=== PATIENT | female | born 2000 | race Caucasian/White ===

== ENCOUNTER 2020-02-09 11:48 | Emergency (ER) | payer SELFPAY ==
--- NOTE | 2020-02-09 12:19 | ED Physician Documentation ---
PD HPI NVD - Stated complaint Stated Complaint: NAUSEA/LIGHT HEADED - Chief complaint Chief Complaint: Abd Pain - History obtained from History obtained from: Patient - History of Present Illness Timing - onset: Last night Timing - duration: Hours (15) Timing - details: Abrupt onset, Still present Associated symptoms: Abdominal pain (mid abd cramping pains), Hematemesis. No: Fever Contributing factors: Recent antibiotics. No: Sick contact, Bad food, Alcohol use Similar symptoms before: Has not had sx before Review of Systems Constitutional: reports: Myalgias, Fatigue. denies: Fever, Chills Nose: denies: Rhinorrhea / runny nose, Congestion Throat: denies: Sore throat Respiratory: denies: Cough GI: reports: Abdominal Pain (mid abdomen, onset with vomiting and diarrhea), Nausea, Vomiting, Diarrhea. denies: Abdominal Swelling : denies: Dysuria, Frequency, Discharge, Missed period Skin: denies: Rash, Lesions Neurologic: reports: Generalized weakness, Headache. 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 : None HEENT: None Psych: None Musculoskeletal: None Derm: None - Past Surgical History Past Surgical History: No - Present Medications Home Medications: Ambulatory Orders Medication Instructions Recorded Confirmed Diphenoxylate/Atropine [Lomotil] 1 each PO QID PRN #12 tablet 02/09/20 Ondansetron Odt [Zofran] 4 mg TL Q6H PRN #10 tablet 02/09/20 - Allergies Allergies/Adverse Reactions: Allergies Allergy/AdvReac Type Severity Reaction Status Date / Time No Known Drug Allergies Allergy Verified 02/09/20 11:53 - Social History Does the pt smoke?: No Smoking Status: Former smoker Does the pt drink ETOH?: No Does the pt have substance abuse?: Yes Substance Use and Type: Marijuana - Immunizations Immunizations are current?: Yes - POLST Patient has POLST: No PD ED PE NORMAL - Vitals Vital signs reviewed: Yes - General General: Alert and oriented X 3, No acute distress, Well developed/nourished - HEENT HEENT: Pharynx benign. No: Moist mucous membranes - Neck Neck: Supple, no meningeal sign, No adenopathy - Cardiac Cardiac: RRR, No murmur - Respiratory Respiratory: Clear bilaterally - Abdomen Abdomen: Normal bowel sounds, Soft, Non distended, No organomegaly, Other (mid abd tender without guarding nor percussion tender. Mild tender RLQ and LLQ as well but no guarding nor rebound. ) Results - Vitals Vitals: Vital Signs - 24 hr 02/09/20 02/09/20 02/09/20 11:53 12:25 12:57 Temperature 36.5 C 36.5 C Heart Rate 74 66 94 Respiratory 18 18 16 Rate Blood Pressure 116/62 116/79 124/86 H O2 Saturation 99 100 100 02/09/20 14:25 Temperature 36.8 C Heart Rate 77 Respiratory 12 Rate Blood Pressure 131/81 H O2 Saturation 100 Oxygen O2 Source Room air - Labs Labs: Laboratory Tests 02/09/20 02/09/20 02/09/20 12:08 12:08 12:20 WBC 11.0 H RBC 4.59 Hgb 12.2 Hct 39.0 MCV 85.0 MCH 26.6 L MCHC 31.3 L RDW 15.0 Plt Count 189 MPV 12.4 H Neut # (Auto) Not Reportable Lymph # (Auto) Not Reportable [place] # (Auto) Not Reportable Eos # (Auto) Not Reportable Baso # (Auto) Not Reportable Absolute Nucleated RBC Not Reportable Total Counted 100 Band Neuts % (Manual) 0 Abnorm Lymph % (Manual) 0 Nucleated RBC % Not Reportable Neutrophils # (Manual) 8.8 H Lymphocytes # (Manual) 1.9 Monocytes # (Manual) 0.3 Eosinophils # (Manual) 0.0 Basophils # (Manual) 0.0 Differential Comment MANUAL DIFFERENTIAL Platelet Estimate NORMAL (130-450,000) Platelet Morphology NORMAL APPEARANCE RBC Morph Micro Appear NORMAL APPEARANCE Sodium 137 Potassium 3.6 Chloride 105 Carbon Dioxide 23 Anion Gap 9.0 BUN 7 Creatinine 0.6 Estimated GFR (MDRD) 126 Glucose 107 H Calcium 9.5 Total Bilirubin 0.8 AST 20 ALT 12 Alkaline Phosphatase 54 Total Protein 8.7 H Albumin 5.1 Globulin 3.6 Albumin/Globulin Ratio 1.4 Lipase 32 Urine Color YELLOW Urine Clarity CLEAR Urine pH 5.5 Ur Specific [place] 1.020 Urine Protein TRACE Urine Glucose (UA) NEGATIVE Urine Ketones >=80 H Urine Occult Blood SMALL H Urine Nitrite NEGATIVE Urine Bilirubin NEGATIVE Urine Urobilinogen 0.2 (NORMAL) Ur Leukocyte Esterase NEGATIVE Urine RBC None Seen Urine WBC 0-3 Ur Squamous Epith Cells NONE SEEN Urine Bacteria None Seen Ur Microscopic Review INDICATED Urine Culture Comments NOT INDICATED Urine HCG, Qual NEGATIVE PD MEDICAL DECISION MAKING - ED course Complexity details: re-evaluated patient (no focal tenderness and no peritoneal signs on exam. Nausea improved and she says she feels hungry and stomach is "growling". ), considered differential (seems abrupt onset with V/D and no focal tenderness on abd. Presume viral GE vs food related. ), d/w patient Departure - Departure Disposition: 01 Home, Self Care Clinical Impression: Nausea vomiting and diarrhea Condition: Stable Record reviewed to determine appropriate education?: Yes Instructions: ED Food Poison Or Gastroenteritis Prescriptions: Diphenoxylate/Atropine [Lomotil] 1 each PO QID PRN #12 tablet PRN Reason: Diarrhea Ondansetron Odt [Zofran] 4 mg TL Q6H PRN #10 tablet PRN Reason: Nausea / Vomiting Comments: Small frequent fluids. Start initially with bland foods such as breads rice pastas and crackers. Progress as tolerated. Tylenol or ibuprofen if needed for mild pains. Ondansetron if needed for nausea and Lomotil for diarrhea. I would anticipate improvement over the next 1 to 2 days at most and resolution of symptoms within a few days. Recheck if not improving in that time course and return sooner if worse. Discharge Date/Time: 02/09/20 14:37
[2020-02-09 12:20] LABS: BASOPHILS % (AUTO) 0.4 %; EOSINOPHILS % (AUTO) 0.1 %; HGB - HEMOGLOBIN 12.2 g/dL (12.0-16.0); MEAN CORPUSCULAR HEMOGLOBIN 26.6 pg (27.0-31.0); MEAN CORPUSCULAR HGB CONC 31.3 g/dL (32.0-36.0); MEAN PLATELET VOLUME 12.4 fL (7.9-10.8); MONOCYTES % (AUTO) 2.9 %; NEUTROPHILS % (AUTO) 88.3 %; PLT - PLATELET COUNT 189 10^3/uL (130-450); RED BLOOD COUNT 4.59 10^6/uL (4.20-5.40)
[2020-02-09 12:25] LABS: ABNORMAL LYMPHS % (MANUAL) 0 %; BAND NEUTROPHILS % (MANUAL) 0 %
[2020-02-09 12:29] LABS: ALBUMIN 5.1 g/dL (3.2-5.5); ALBUMIN/GLOBULIN RATIO 1.4 (1.0-2.2); BILIRUBIN,TOTAL 0.8 mg/dL (0.2-1.0); CALCIUM 9.5 mg/dL (8.5-10.3); CREATININE 0.6 mg/dL (0.4-1.0); TOTAL PROTEIN 8.7 g/dL (6.7-8.2)
[2020-02-09 12:31] LABS: BILIRUBIN,URINE NEGATIVE (NEGATIVE); GLUCOSE, URINE (UA) NEGATIVE (NEGATIVE); KETONES,URINE (UA) >=80 mg/dL (NEGATIVE); LEUKOCYTE ESTERASE, URINE NEGATIVE (NEGATIVE); NITRITE,URINE NEGATIVE (NEGATIVE); OCCULT BLOOD,URINE SMALL (NEGATIVE); PH,URINE 5.5 PH (5.0-7.5); PROTEIN,URINE TRACE mg/dL (NEGATIVE); UROBILINOGEN,URINE 0.2 (NORMAL) E.U./dL (NORMAL)
[2020-02-09 12:33] LABS: CLARITY,URINE CLEAR (CLEAR); HCG UR QUAL NEGATIVE
[2020-02-09 12:41] LABS: BACTERIA,URINE None Seen /HPF (None Seen); RBC,URINE None Seen /HPF (0-5); SQUAMOUS EPITHELIAL CELL,UR NONE SEEN (<= Few)
[2020-02-09] MEDS ORDERED: DIPHENOX/ATROPINE 2.5/0.025 MG TABLET PO STA (12:41)
[2020-02-09] MEDS ORDERED: LACTATED RINGERS 1,000 ML IV STA (12:41)
[2020-02-09] MEDS ORDERED: ONDANSETRON 4 MG/2 ML VIAL IVP STA (12:41)
[2020-02-09] MEDS ORDERED: MORPHINE 2 MG/ML CARPUJECT IVP STA (12:41)
[2020-02-09 12:49] LABS: DIFFERENTIAL COMMENT MANUAL DIFFERENTIAL; LYMPHOCYTES # (MANUAL) 1.9 10^3/uL (1.5-3.5); LYMPHOCYTES % (MANUAL) 17 %; MONOCYTES # (MANUAL) 0.3 10^3/uL (0.0-1.0); PLATELET ESTIMATE, MANUAL NORMAL (130-450,000) (NORMAL); PLATELET MORPHOLOGY NORMAL APPEARANCE (NORMAL); RBC MORPHOLOGY (MULTIPLE) NORMAL APPEARANCE (NORMAL)
[2020-02-09] MEDS ORDERED: KETOROLAC 15 MG/ML VIAL IVP STA (13:52)
[2020-02-09 14:26] VITALS: BP 131/81
== END 2020-02-09 14:37 | disposition home or self-care (01) ==
LOC: ED 11:48
DX: R11.2 Nausea with vomiting, unspecified (principal); R19.7 Diarrhea, unspecified; Z87.891 Personal history of nicotine dependence
CPT/HCPCS: 36415; 80053; 81001; 81025; 83690; 85025; 96361; 96374; 96375; 99283; 99284; A9270; J7120; 81003; 87086

== ENCOUNTER 2020-03-05 07:33 | Emergency (ER) | payer MEDICAID ==
[2020-03-05] MEDS ORDERED: HALOPERIDOL 5 MG/ML VIAL IM STA (07:59)
--- NOTE | 2020-03-05 08:02 | ED Physician Documentation ---
PD HPI NVD - Stated complaint Stated Complaint: VOMITING - History obtained from History obtained from: Patient - History of Present Illness Timing - onset: Enter time (0300), Last night Timing - duration: Hours Timing - details: Abrupt onset, Still present Associated symptoms: Abdominal pain Contributing factors: Other (canabis use). No: Sick contact, Bad food, Travel, Recent antibiotics, Alcohol use, Anticoagulated, Diabetes Improved by: Laying still, Vomiting Similar symptoms before: Diagnosis (gastroenteritis) Recently seen: Emergency Dept - Additonal information Additional information: 19-year-old female has developed abdominal pain nausea and vomiting through the night tonight and she reports having relief of symptoms with hot shower. She has found this over the past several weeks to be true. She states that she did try to stop smoking cannabis and when this did not seem to help much she started up again to make her feel better. She has been into the emergency department 4 weeks ago with similar symptoms.She found the Zofran helpful. 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 : None HEENT: None Psych: None Musculoskeletal: None Derm: None - Past Surgical History Past Surgical History: No - Present Medications Home Medications: Ambulatory Orders Medication Instructions Recorded Confirmed Ondansetron Odt [Zofran] 4 mg TL Q6H PRN #10 tablet 03/05/20 - Allergies Allergies/Adverse Reactions: Allergies Allergy/AdvReac Type Severity Reaction Status Date / Time No Known Drug Allergies Allergy Verified 03/05/20 08:02 - Social History Does the pt smoke?: No Smoking Status: Former smoker Does the pt drink ETOH?: No Does the pt have substance abuse?: Yes - Immunizations Immunizations are current?: Yes - POLST Patient has POLST: No PD ED PE NORMAL - Vitals Vital signs reviewed: Yes - General General: Alert and oriented X 3, No acute distress, Well developed/nourished - HEENT HEENT: Atraumatic, PERRL, EOMI - Neck Neck: Supple, no meningeal sign, No bony TTP - Cardiac Cardiac: RRR, No murmur - Respiratory Respiratory: No respiratory distress, Clear bilaterally - Abdomen Abdomen: Normal bowel sounds, Soft, Non distended, No organomegaly, Other (mild tenderness generalized no garding ) - Back Back: No CVA TTP, No spinal TTP - Derm Derm: Normal color, Warm and dry, No rash - Extremities Extremities: No deformity, No edema - Neuro Neuro: Alert and oriented X 3, service girl 2-12 intact, No motor deficit, No sensory deficit, Normal speech Eye Opening: Spontaneous Motor: Obeys Commands Verbal: Oriented GCS Score: 15 - Psych Psych: Normal mood, Normal affect Results - Vitals Vitals: Vital Signs - 24 hr 03/05/20 07:50 Temperature 36.7 C Heart Rate 87 Respiratory 18 Rate Blood Pressure 124/72 O2 Saturation 99 Oxygen O2 Source Room air Procedures - IVC sono (time) 0755 Bedside IVC sono: IVC measures (cm) (1.83), Euvolemia PD MEDICAL DECISION MAKING - ED course Complexity details: reviewed old records, considered differential, d/w patient, d/w family ED course: 19-year-old female with suspicion of cannabis hyperemesis is again having symptoms. Today she is found to be euvolemic on interrogation the inferior vena cava and intravenous fluids are not indicated. She is administered Haldol 2.5 mg IM. This helps a lot. She acknowledges the possibility of cannabis hyperemesis. We will prescribe zofran as this has helped previously. She had a negative test on February 08 and she had her last menstrual period 2 weeks ago. She is using an IUD for control. She feels it highly unlikely that she is . Departure - Departure Disposition: 01 Home, Self Care Clinical Impression: Vomiting Qualifiers: Vomiting type: unspecified Vomiting Intractability: non-intractable Nausea presence: with nausea Qualified Code(s): R11.2 - Nausea with vomiting, unspecified Instructions: ED Diet Vomiting Diarrhea Follow-Up: [facility] [Provider Group] Prescriptions: Ondansetron Odt [Zofran] 4 mg TL Q6H PRN #10 tablet PRN Reason: Nausea / Vomiting
[2020-03-05 08:47] VITALS: BP 112/61
== END 2020-03-05 08:46 | disposition home or self-care (01) ==
LOC: ED 07:33
DX: R11.2 Nausea with vomiting, unspecified (principal); Z87.891 Personal history of nicotine dependence
CPT/HCPCS: 99283; 99284

== ENCOUNTER 2020-03-06 11:38 | Emergency (ER) | payer MEDICAID ==
[2020-03-06] MEDS ORDERED: SODIUM CHLORIDE 0.9% 1,000 ML IV STA (12:26)
--- NOTE | 2020-03-06 12:34 | ED Physician Documentation ---
History of Present Illness - Stated complaint Stated Complaint: MUSCLE TWITCHING - Chief complaint Chief Complaint: General - History obtained from History obtained from: Patient, Family - History of Present Illness Timing: Today Pain level max: 0 Pain level now: 0 - Additonal information Additional information: muscle spasms to the B face and neck today. States vision is blurry. Patient was seen here yesterday for presumed cannabinoid induced hyperemesis. She received Haldol with relief. She states she has had blurred vision since that time. She denies any possibility of . No recent travel. No fever. No vomiting or diarrhea today. The twitching has now resolved. 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 : None HEENT: None Psych: None Musculoskeletal: None Derm: None - Past Surgical History Past Surgical History: No - Present Medications Home Medications: Ambulatory Orders Medication Instructions Recorded Confirmed Ondansetron Odt [Zofran] 4 mg TL Q6H PRN #10 tablet 03/05/20 - Allergies Allergies/Adverse Reactions: Allergies Allergy/AdvReac Type Severity Reaction Status Date / Time No Known Drug Allergies Allergy Verified 03/06/20 11:49 - Social History Does the pt smoke?: No Smoking Status: Never smoker Does the pt drink ETOH?: No Does the pt have substance abuse?: Yes - Immunizations Immunizations are current?: Yes - POLST Patient has POLST: No PD ED PE NORMAL - Vitals Vital signs reviewed: Yes - General General: Alert and oriented X 3, No acute distress - HEENT HEENT: PERRL, EOMI, Ears normal, Moist mucous membranes, Pharynx benign - Neck Neck: Supple, no meningeal sign - Cardiac Cardiac: RRR, Strong equal pulses - Respiratory Respiratory: No respiratory distress, Clear bilaterally - Abdomen Abdomen: Soft, Non tender, Non distended - Back Back: No CVA TTP, No spinal TTP - Derm Derm: Warm and dry - Extremities Extremities: No edema, No calf tenderness / cord - Neuro Neuro: Alert and oriented X 3 - Psych Psych: Normal mood, Normal affect Results - Vitals Vitals: Vital Signs - 24 hr 03/06/20 03/06/20 11:45 13:24 Temperature 36.8 C Heart Rate 84 80 Respiratory 18 16 Rate Blood Pressure 121/86 H 114/78 O2 Saturation 99 99 Oxygen O2 Source Room air - Labs Labs: Laboratory Tests 03/06/20 03/06/20 03/06/20 12:40 12:40 13:21 WBC 9.4 RBC 4.25 Hgb 11.4 L Hct 35.9 L MCV 84.5 MCH 26.8 L MCHC 31.8 L RDW 14.3 Plt Count 158 MPV 11.7 H Neut # (Auto) 7.7 H Lymph # (Auto) 1.1 L [place] # (Auto) 0.5 Eos # (Auto) 0.0 Baso # (Auto) 0.0 Absolute Nucleated RBC 0.00 Nucleated RBC % 0.0 Sodium 137 Potassium 3.7 Chloride 105 Carbon Dioxide 22 Anion Gap 10.0 BUN 7 Creatinine 0.6 Estimated GFR (MDRD) 126 Glucose 92 Calcium 9.2 Phosphorus 3.7 Magnesium 1.8 Total Bilirubin 1.1 H AST 20 ALT 16 Alkaline Phosphatase 43 Total Protein 7.3 Albumin 4.4 Globulin 2.9 Albumin/Globulin Ratio 1.5 Urine Color YELLOW Urine Clarity CLEAR Urine pH 6.0 Ur Specific [place] 1.010 Urine Protein NEGATIVE Urine Glucose (UA) NEGATIVE Urine Ketones 15 H Urine Occult Blood NEGATIVE Urine Nitrite NEGATIVE Urine Bilirubin NEGATIVE Urine Urobilinogen 0.2 (NORMAL) Ur Leukocyte Esterase NEGATIVE Ur Microscopic Review NOT INDICATED Urine Culture Comments NOT INDICATED Urine HCG, Qual NEGATIVE PD MEDICAL DECISION MAKING - ED course Complexity details: reviewed results, re-evaluated patient, considered differential, d/w patient ED course: Symptoms resolved with IV fluids and Cogentin. Vision returned to normal. Twitching stopped. Likely side effect from the Haldol. Patient is well- appearing, nontoxic. Afebrile. Patient counseled regarding signs and symptoms for which I believe and urgent re-evaluation would be necessary. Patient with good understanding of and agreement to plan and is comfortable going home at this time This document was made in part using voice recognition software. While efforts are made to proofread this document, sound alike and grammatical errors may occur. Departure - Departure Disposition: 01 Home, Self Care Clinical Impression: Tremor Condition: Good Instructions: ED Dehydration Follow-Up: your,doctor in 1 week [Other] Comments: Return if you worsen. This was likely related to the medication that you received yesterday. You can take Benadryl at home if you begin to have twitching again.
[2020-03-06 12:50] LABS: BASOPHILS % (AUTO) 0.4 %; EOSINOPHILS % (AUTO) 0.2 %; HGB - HEMOGLOBIN 11.4 g/dL (12.0-16.0); LYMPHOCYTES # (AUTO) 1.1 10^3/uL (1.5-3.5); LYMPHOCYTES % (AUTO) 11.5 %; MEAN CORPUSCULAR HEMOGLOBIN 26.8 pg (27.0-31.0); MEAN CORPUSCULAR HGB CONC 31.8 g/dL (32.0-36.0); MEAN CORPUSCULAR VOLUME 84.5 fL (81.0-99.0); MEAN PLATELET VOLUME 11.7 fL (7.9-10.8); MONOCYTES # (AUTO) 0.5 10^3/uL (0.0-1.0); MONOCYTES % (AUTO) 5.5 %; NEUTROPHILS # (AUTO) 7.7 10^3/uL (1.5-6.6); PLT - PLATELET COUNT 158 10^3/uL (130-450); RED BLOOD COUNT 4.25 10^6/uL (4.20-5.40); RED CELL DISTRIBUTION WIDTH 14.3 % (12.0-15.0); WHITE BLOOD COUNT 9.4 x10^3/uL (4.8-10.8)
[2020-03-06 13:02] LABS: ALBUMIN 4.4 g/dL (3.2-5.5); ALBUMIN/GLOBULIN RATIO 1.5 (1.0-2.2); BILIRUBIN,TOTAL 1.1 mg/dL (0.2-1.0); CALCIUM 9.2 mg/dL (8.5-10.3); CREATININE 0.6 mg/dL (0.4-1.0); MAGNESIUM 1.8 mg/dL (1.7-2.8); PHOSPHORUS 3.7 mg/dL (2.5-4.6); TOTAL PROTEIN 7.3 g/dL (6.7-8.2)
[2020-03-06 13:25] VITALS: BP 114/78
[2020-03-06 13:43] LABS: BILIRUBIN,URINE NEGATIVE (NEGATIVE); GLUCOSE, URINE (UA) NEGATIVE (NEGATIVE); KETONES,URINE (UA) 15 mg/dL (NEGATIVE); LEUKOCYTE ESTERASE, URINE NEGATIVE (NEGATIVE); NITRITE,URINE NEGATIVE (NEGATIVE); OCCULT BLOOD,URINE NEGATIVE (NEGATIVE); PROTEIN,URINE NEGATIVE (NEGATIVE); UROBILINOGEN,URINE 0.2 (NORMAL) E.U./dL (NORMAL)
[2020-03-06 13:45] LABS: CLARITY,URINE CLEAR (CLEAR)
[2020-03-06 13:47] LABS: HCG UR QUAL NEGATIVE
[2020-03-06] MEDS ORDERED: BENZTROPINE 2 MG/2 ML VIAL IVP STA (13:48)
== END 2020-03-06 14:22 | disposition home or self-care (01) ==
LOC: ED 11:38
DX: R25.1 Tremor, unspecified (principal); M62.838 Other muscle spasm; H53.8 Other visual disturbances
CPT/HCPCS: 36415; 80053; 81003; 81025; 83735; 84100; 85025; 96361; 96374; 99283; 99284; J0515; 81001; 87086